=== PATIENT | female | born 1970 | race Two or more races ===

== ENCOUNTER 2021-07-14 17:01 | Emergency (ER) | payer MEDICAID ==
[~2021-07-14] VITALS: Ht 170.2 cm; Wt 91.0 kg
[2021-07-14] MEDS ORDERED: KETOROLAC 60MG/2ML VIAL IM ONE (17:45)
[2021-07-14] MEDS ORDERED: ONDANSETRON 4MG ODT PO ONE (17:45)
[2021-07-14 19:32] LABS: BASOPHILS % 0.4 % (0.0-2.0); EOSINOPHILS % 2.6 % (0.0-5.0); HEMATOCRIT. 37.5 % (36.0-48.0); HEMOGLOBIN. 11.8 g/dL (12.0-16.0); LYMPHOCYTES % 32.9 % (20.0-50.0); MEAN CORPUSCULAR HEMOGLOBIN 25.1 pg (28.0-32.0); MEAN CORPUSCULAR VOLUME 79.6 fL (81.0-99.0); NEUTROPHILS % 56.1 % (40.0-76.0); PLATELET 260 x1000/uL (130-400); RED BLOOD CELL COUNT 4.71 mill/uL (4.2-5.4); RED CELL DISTRIBUTION WIDTH 13.7 % (11.6-14.6)
[2021-07-14 19:38] LABS: CHLORIDE 105 mEq/L (98-107)
[2021-07-14] MEDS ORDERED: FENTANYL CITRATE/PF 50MCG/ML 2ML VIAL IV ONE (19:45)
[2021-07-14] MEDS ORDERED: ONDANSETRON HCL 4MG/2ML INJ IV ONE (19:45)
[2021-07-14 19:56] LABS: PARTIAL THROMBOPLASTIN TIME 26.2 sec (23.4-31.0); PROTHROMBIN TIME 10.4 sec (9.6-11.0)
[2021-07-14] MEDS ORDERED: LORAZEPAM 2MG/ML CPJ IV ONE (20:45)
[2021-07-14] MEDS ORDERED: IBUP-2030 MT (21:40)
[2021-07-14 22:25] VITALS: BP 131/81
== END 2021-07-14 22:25 | disposition home or self-care (01) ==
LOC: ER 17:01
DX: S09.8XXA Other specified injuries of head, initial encounter (principal); M54.2 Cervicalgia; V49.40XA Driver injured in collision with unspecified motor vehicles in traffic accident, initial encounter; Y93.89 Activity, other specified; Y92.410 Unspecified street and highway as the place of occurrence of the external cause
CPT/HCPCS: 36415; 70450; 70551; 72125; 80053; 85025; 85610; 85730; 96372; 96374; 96375; 99291; J1885; J2060; J2405; J3010; Q0162; Z7610